=== PATIENT | female | born 1965 ===

== ENCOUNTER 2023-12-14 06:00 | Outpatient (RCR) | payer OTHER, SELFPAY | END 2023-12-25 18:00 | disposition home or self-care (01) | LOC: WPT 06:00 | PROVIDERS: Visit Provider Orthopaedic Surgery | DX: Z47.1 Aftercare following joint replacement surgery (principal); Z96.652 Presence of left artificial knee joint | CPT/HCPCS: 97110; 97112; 97140; 97161; 97530 ==

== ENCOUNTER 2023-12-26 06:00 | Outpatient (RCR) | payer OTHER, SELFPAY | END 2024-01-24 23:59 | disposition home or self-care (01) | LOC: WPT 06:00 | PROVIDERS: Visit Provider Orthopaedic Surgery | DX: Z47.1 Aftercare following joint replacement surgery (principal); Z96.652 Presence of left artificial knee joint | CPT/HCPCS: 97110; 97112; 97140; 97530 ==

== ENCOUNTER 2024-01-25 06:00 | Outpatient (RCR) | payer OTHER, SELFPAY | END 2024-02-24 23:59 | disposition home or self-care (01) | LOC: WPT 06:00 | PROVIDERS: Visit Provider Orthopaedic Surgery | DX: Z47.1 Aftercare following joint replacement surgery (principal); Z96.652 Presence of left artificial knee joint | CPT/HCPCS: 97110; 97112; 97530 ==

== ENCOUNTER 2024-02-25 06:00 | Outpatient (RCR) | payer OTHER, SELFPAY | END 2024-03-25 23:59 | disposition home or self-care (01) | LOC: WPT 06:00 | PROVIDERS: Visit Provider Orthopaedic Surgery | DX: Z47.1 Aftercare following joint replacement surgery (principal); Z96.652 Presence of left artificial knee joint | CPT/HCPCS: 97110; 97112; 97530 ==